=== PATIENT | male | born 1955 | race African-American/Black ===

== ENCOUNTER 2018-02-04 13:41 | Emergency (ER) | payer SELFPAY, BC | END 2018-02-04 13:55 | disposition left against medical advice (07) | LOC: FTE 13:41 | DX: Z53.21 Procedure and treatment not carried out due to patient leaving prior to being seen by health care provider (principal) ==

== ENCOUNTER 2018-11-01 06:16 | Day surgery (SDC) | payer BC | END 2018-11-01 10:05 | disposition home or self-care (01) | LOC: GIL 06:16 | DX: K51.90 Ulcerative colitis, unspecified, without complications (principal); K64.8 Other hemorrhoids | CPT/HCPCS: 45378; 88305 ==

== ENCOUNTER 2018-12-02 13:50 | Emergency (ER) | payer BC | END 2018-12-02 15:43 | disposition home or self-care (01) | LOC: FTE 13:50 | DX: H61.23 Impacted cerumen, bilateral (principal); J45.909 Unspecified asthma, uncomplicated; Z96.651 Presence of right artificial knee joint | CPT/HCPCS: 99283; Z7502 ==